=== PATIENT | male | born 1950 | race Caucasian/White ===

== ENCOUNTER 2022-06-30 04:50 | Day surgery (SDC) | payer OTHER, BC ==
[2022-06-25 16:45] VITALS: BMI 32.1
[2022-06-30 11:13] VITALS: TEMP 98
[2022-06-30 12:08] VITALS: BP 125/89; PULSE 54; RESP 15
== END 2022-06-30 11:57 | disposition home or self-care (01) ==
LOC: JASU-ENDO 04:50
PROVIDERS: ATTEND Internal Medicine Gastroenterology
PROC: 0DJD8ZZ Inspection of Lower Intestinal Tract, Via Natural or Artificial Opening Endoscopic (ICD-10-PCS; principal; 2022-06-30 10:00)
DX: Z12.11 Encounter for screening for malignant neoplasm of colon (principal); K64.8 Other hemorrhoids; K57.30 Diverticulosis of large intestine without perforation or abscess without bleeding; Z87.19 Personal history of other diseases of the digestive system